=== PATIENT | male | born 1975 | race Caucasian/White ===

== ENCOUNTER 2024-10-20 18:55 | Emergency (ER) | payer SELFPAY ==
[2024-10-20 18:56] VITALS: BP 202/110; PULSE 113; RESP 18; TEMP 37.7; O2SAT 97; BMI 35.9
[2024-10-20 19:18] VITALS: BP 202/107; PULSE 99; RESP 18; O2SAT 97
--- NOTE | 2024-10-20 19:25 | EKG12_ITS ---
Test Reason : Blood Pressure : */* mmHG Vent. Rate : 95 BPM Atrial Rate : 95 BPM P-R Int : 154 ms QRS Dur : 94 ms QT Int : 328 ms P-R-T Axes : 36 28 19 degrees QTcB Int : 412 ms Normal sinus rhythm Normal ECG Confirmed by Andrew Wong ([id number]), [employer] ([id number]) on 10/22/2024 8:04:36 AM Referred By: Confirmed By: Andrew Wong
[2024-10-20] MEDS: 0.9% Normal Saline (1000mL) 1,000 ML 999 ML IV (19:42)
--- NOTE | 2024-10-20 19:53 | RAD_ITS ---
PROCEDURE: CHEST PA AND LATERAL REASON FOR EXAM: Chest pain TECHNIQUE: Frontal and lateral views of the chest. COMPARISON: None. FINDINGS: The heart size is normal. The mediastinal contour is unremarkable. The lungs are clear. The bones are unremarkable. RAD/Chest PA and Lateral IMPRESSION: No radiographic evidence of acute cardiopulmonary disease Reading Location: [facility]
[2024-10-20 20:00] VITALS: BP 196/106; PULSE 102; RESP 24; TEMP 36.6; O2SAT 97
[2024-10-20 20:00] LABS: Absolute Lymphocyte Count 0.57 X10^3/uL (0.83-4.51); Basophil# 0.03 X10^3/uL; Basophil% 0.5 % (0-1); Eosinophil# 0.04 X10^3/uL; Eosinophils% 0.6 % (0-5); Hemoglobin 9.1 g/dL (13.0-16.5); Lymphocyte # 0.57 X10^3/ul (0.83-4.51); Lymphocyte % 8.8 % (19-41); Mean Corp Hgb Conc 29.4 g/dL (32-36); Mean Corpuscular Hgb 22.1 pg (27.0-32.0); Mean Corpuscular Volume 75.2 fL (80-94); Mean Platelet Vol. 9.8 fl (6.2-12.0); Monocyte# 0.77 X10^3/uL; Monocyte% 11.9 % (0-10); NRBC Flagged by Analyzer 0 % (0-5); Neutrophil # 5.04 X10^3/uL (2.7-7.7); POSITIVE DIFFERENTIAL YES; Platelet Count 415 K/mm3 (150-450); RBC Distribution Width CV 19.2 % (11.6-14.6); RBC Distribution Width SD 51.8 fl (35.1-43.9); Red Blood Count 4.12 M/mm3 (4.6-6.2); White Blood Count 6.5 K/mm3 (4.4-11.0)
[2024-10-20 20:14] LABS: Anion Gap 8 (5-15); BUN 14 mg/dL (7-18); BUN/Creat Ratio 10.9 RATIO (10-20); Calcium,Total 9.2 mg/dL (8.5-10.1); Chloride 104 mmol/L (98-107); Creatinine, Serum 1.28 mg/dL (0.70-1.30); EST Glomerular Filtration Rate 63 mL/min (>60); Est Glom Filt Rate - Afr Amer 76 mL/min (>60); Glucose 103 mg/dL (74-106); Potassium 3.7 mmol/L (3.5-5.1); Sodium Level 135 mmol/L (136-145); Troponin-I HS (w/2H Reflex) 20 pg/mL (3.0-78.0)
[2024-10-20] MEDS: cloNIDine HCl 0.2 MG Tablet PO (20:15)
[2024-10-20 21:00] VITALS: BP 173/96; PULSE 91; RESP 21; TEMP 36.7; O2SAT 94
[2024-10-20 21:47] LABS: Reflex Troponin-HS? (from REC) Y
[2024-10-20 22:00] VITALS: BP 181/99; PULSE 91; O2SAT 95
[2024-10-20 22:22] LABS: Troponin-I HS 24 pg/mL (3.0-78.0)
--- NOTE | 2024-10-20 22:31 | EX.ED.DYSGE1 ---
HPI History of Present Illness Chief Complaint: Hypertension Narrative Narrative: Patient is a 49-year-old male past medical history of hypertension who presents to the doctors hospital part with a chief complaint of fever, cough, congestion, high blood pressure at home. He states that he started having symptoms yesterday and states that he has not been on any blood pressure medication for several months that states that every single time he goes to the doctor he was told that he needs more blood work taken prior to them represcribing his blood pressure medication and states that he has not followed back up with them in a while. Patient has no other complaints at this point time. [facility] Medical History Gout HTN (hypertension) Home Medications ?Medication ?Instructions ?Recorded ?Last Taken ?Type amlodipine 5 mg tablet 5 mg PO DAILY 30 days #30 tabs 10/20/24 Unknown Rx lisinopril 10 mg tablet 10 mg PO DAILY 30 days #30 tabs 10/20/24 Unknown Rx Allergy/AdvReac Type Severity Reaction Status Date / Time No Known Allergies Allergy Verified 10/20/24 18:57 Social History Smoking Status: Never smoker ROS ROS ED ROS Narrative Constitutional: Complains of fever as noted above denies headache, lightheadedness, dizziness Eyes: Denies change in vision double vision blurry vision Cardiovascular: Denies chest pain or palpitations Respiratory: Complains of coughing as noted above denies wheezing Abdomen: Denies abdominal pain nausea vomit diarrhea : Denies any urinary symptoms Neurological: Denies numbness, weakness, tingling Musculoskeletal: Denies back pain Skin: Denies rashes or lesions EXAM Physical Exam Narrative Exam Narrative: General: Patient was lying in bed rest comfortably did not appear to be in acute distress Head: Atraumatic, normocephalic Eyes: PERRL bilaterally, EOMI bilaterally, no conjunctival injection noted Neck: Soft, supple, trachea midline Cardiovascular: Regular rate and rhythm no murmurs gallops rubs noted Respiratory: Clear to auscultation bilaterally no rales rhonchi or wheezes noted Abdomen: Soft, nondistended, nontender to palpation Extremities: Radial pulses +2/4 in the bilateral per extremities, no pedal edema on exam, +5/5 strength noted in the bilateral upper and lower extremities Neurological: Patient following commands knew that he was at [facility] year is 2024 Skin: Warm, dry, intact no rashes or lesions noted Const Vital Signs: 10/20/24 18:56 10/20/24 19:15 10/20/24 19:18 Temperature 100 F H Temperature Source Oral Pulse Rate 113 H 99 Respiratory Rate 18 18 Respiratory Effort Normal Non-Labored Respiratory Pattern Normal Blood Pressure 202/110 H 202/107 H Blood Pressure Mean 140 138 Pulse Ox 97 97 Oxygen Delivery Method Room Air Room Air 10/20/24 19:44 10/20/24 20:00 10/20/24 21:00 Temperature 97.8 F 98.1 F Temperature Source Temporal Temporal Pulse Rate 102 H 91 Respiratory Rate 24 H 21 H Respiratory Effort Respiratory Pattern Blood Pressure 196/106 H 173/96 H Blood Pressure Mean 136 121 Pulse Ox 97 94 Oxygen Delivery Method Room Air Room Air Room Air 10/20/24 22:00 Temperature Temperature Source Pulse Rate 91 Respiratory Rate Respiratory Effort Respiratory Pattern Blood Pressure 181/99 H Blood Pressure Mean 126 Pulse Ox 95 Oxygen Delivery Method MDM MDM MDM Narrative Medical decision making narrative: Patient is a 49-year-old male who presented to the emerged part with chief complaint of hypertension, cough not feeling well. On the differential diagnose includes but not limited to hypertension, hypertensive emergency, COVID, flu, pneumonia. Once workup is obtained reviewed he will be reevaluated. Patient's CBC reviewed showed no evidence leukocytosis white blood count was normal at 6.5, hemoglobin 9.1, platelet count normal at 415. Patient sodium normal 135, potassium normal 3.7, creatinine normal at 1.28. Patient's troponin normal at 20 with a delta troponin normal at 24. Patient's EKG reviewed and independently interpreted myself showed sinus rhythm with a rate of 95 bpm. Patient's chest x-ray reviewed by myself and by radiology which showed no acute cardiopulmonary processes. Patient test positive for influenza A here in the emergency department. Patient was given 0.2 mg of clonidine and his blood pressure did come down to systolic of 181 he remains asymptomatic. I discussed with the patient that we should restart the previous blood pressure medications that he was on he believes he was on amlodipine 5 mg and lisinopril 10 mg he will be placed back on these. He is advised to keep a close eye on his blood pressure continue supportive care for his influenza and return with worsening symptoms or concerns. He is otherwise to follow-up with a primary care physician which she was referred to a few does not want to return to the old PCP. He is agreeable this plan as well as family at bedside all question concerns answered is discharged home in stable condition. Lab Data Labs: Laboratory Results - last 24 hr 10/20/24 10/20/24 19:35 21:46 WBC 6.5 RBC 4.12 L Hgb 9.1 L Hct 31.0 L MCV 75.2 L MCH 22.1 L MCHC 29.4 L RDW Std Deviation 51.8 H RDW Coeff of Nancy 19.2 H Plt Count 415 MPV 9.8 Immature Gran % (Auto) 0.200 Neut % (Auto) 78.0 H Lymph % (Auto) 8.8 L [place] % (Auto) 11.9 H Eos % (Auto) 0.6 Baso % (Auto) 0.5 Absolute Neuts (auto) 5.0 Absolute Lymphs (auto) 0.57 L Nucleated RBC % 0 Sodium 135 L Potassium 3.7 Chloride 104 Carbon Dioxide 24.0 Anion Gap 8 BUN 14 Creatinine 1.28 Estim Creat Clear Calc 83.60 Est GFR (MDRD) Af Amer 76 Est GFR (MDRD) Non-Af 63 BUN/Creatinine Ratio 10.9 Glucose 103 Calcium 9.2 Troponin I High Sens 20 24 Radiography Diagnostic Testing: Clinical Impression(s) from Imaging Studies Chest X-Ray 10/20/24 19:53 IMPRESSION: No radiographic evidence of acute cardiopulmonary disease Reading [facility] Dis[facility] Triage Chief Complaint: Hypertension Other Complaint: Cold Sx ED Provider: Hemanth Westfall Dx/Rx/DC Orders Clinical Impression: Hypertension, Influenza A Prescriptions: New lisinopril 10 mg tablet 10 mg PO DAILY 30 Days Qty: 30 0RF amlodipine 5 mg tablet 5 mg PO DAILY 30 Days Qty: 30 0RF Primary Care Provider: Guillaume Brown Referrals: Guillaume Brown DO [Primary Care Provider] - Activity Restrictions/Additional Instructions: You tested positive for influenza A here in the emergency department. Continue supportive care rotate Tylenol and ibuprofen [id number] for fever and body ache control. Max dose of Tylenol is 4000 mg max dose of ibuprofen is 3200 mg. Take the blood pressure medication that you are prescribed keep a close eye on your blood pressure and follow-up with your primary care physician outpatient setting. Return with worsening symptoms or concerns. Print Language: Haitian Disposition Disposition: Home, Self Care
[2024-10-20 22:49] VITALS: BP 163/93; PULSE 84; RESP 16; TEMP 36.6; O2SAT 100
== END 2024-10-20 22:50 | disposition home or self-care (01) ==
PROVIDERS: Emergency Provider Emergency Medicine; PCP Student in an Organized Health Care Education/Training Program; Visit Provider Emergency Medicine
DX: J10.1 Influenza due to other identified influenza virus with other respiratory manifestations (principal); I10 Essential (primary) hypertension
CPT/HCPCS: 71046; 80048; 84484; 85025; 87631; 93005; 96360; 99284